=== PATIENT | male | born 2000 | race Caucasian/White ===

== ENCOUNTER → 2024-02-16 07:10 | Outpatient (REF) | payer BC, SELFPAY | LOC: RCS 07:10 | PROVIDERS: ATTENDING PHYSICIAN Internal Medicine Cardiovascular Disease; FAMILY PHYSICIAN Physician Assistant | DX: R07.89 Other chest pain (principal) | CPT/HCPCS: 93306 ==

== ENCOUNTER → 2024-02-18 10:05 | Outpatient (REF) | payer BC, SELFPAY | LOC: RCS 10:05 | PROVIDERS: ATTENDING PHYSICIAN Internal Medicine Cardiovascular Disease; FAMILY PHYSICIAN Physician Assistant | DX: R07.89 Other chest pain (principal) | CPT/HCPCS: 93017 ==